=== PATIENT | male | born 1960 | race Caucasian/White ===

== ENCOUNTER 2018-02-01 05:49 | Inpatient (IN) ==
[2018-01-23 12:18] LABS: Basophils % 0.8 % (0.0-0.8); Eosinophils # 0.1 10*3/uL (0.0-0.87); Eosinophils % 2.1 % (0.00-10.9); Hematocrit 43.5 VOL% (42.0-52.0); Immature Granulocytes % 0.4 %; Immature Granulocytes Absolute 0.02 #; Lymphocytes # 0.8 10*3/uL (1.4-4.0); Lymphocytes % 15.8 % (21.2-54.2); Mean Corpuscular HGB Conc 34.5 GM/DL (32-36); Mean Corpuscular Hemoglobin 32 PG (27-34); Mean Platelet Volume 10.8 FL (9.6-12.0); Monocytes # 0.9 10*3/uL (0.11-0.8); Monocytes % 19.4 % (1.7-12.7); Neutrophils % 61.5 % (38.7-73.9); Platelet Count 113 T/CUMM (130-400); Red Blood Count 4.73 MC/CUMM (3.8-5.5); Red Cell Distribution Width 13.7 % (9.3-17.3); White Blood Count 4.8 T/CUMM (4-12)
[2018-01-23 12:44] LABS: Calcium 9.2 MG/DL (8.5-10.1)
[2018-01-23 12:45] LABS: Osmolality,Calculated 275.7 MOS/KG (273-304); Potassium 4.1 MMOL/L (3.5-5.1)
[~2018-02-01 05:49] MED LIST: cefOXitin 1,000 MG in SYRINGE 1 EACH IV ONE
[2018-02-01] MEDS ORDERED: ALVIMOPAN 12 MG CAPSULE ONE (05:54)
[2018-02-01] MEDS ORDERED: LACTATED RINGERS 1,000 ML IV SCH (06:00)
[2018-02-01] MEDS ORDERED: ALVIMOPAN 12 MG CAPSULE PO ONE (06:30)
[2018-02-01] MEDS ORDERED: FAMOTIDINE 20 MG TABLET ONE (06:40)
[2018-02-01] MEDS ORDERED: FAMOTIDINE 20 MG TABLET PO ONE (06:43)
[2018-02-01] MEDS ORDERED: FAMOTIDINE 20 MG/2 ML VIAL IV ONE (06:43)
[2018-02-01] MEDS ORDERED: PROPOFOL 200 MG/20 ML VIAL IV ONE (10:56)
[2018-02-01] MEDS ORDERED: DESFLURANE 1 UNIT/15 MINUTE INH ONE (10:57)
[2018-02-01] MEDS ORDERED: DEXAMETHASONE 10 MG/1 ML VIAL ONE (10:57)
[2018-02-01] MEDS ORDERED: MIDAZOLAM 2 MG/2 ML VIAL ONE (10:57)
[2018-02-01] MEDS ORDERED: SUFentanil 50 MCG/ML AMP ONE (10:57)
[2018-02-01] MEDS ORDERED: NEOSTIGMINE 10 MG/10 ML VIAL ONE (10:58)
[2018-02-01] MEDS ORDERED: GLYCOPYRROLATE 0.4 MG/2 ML VIAL ONE (10:58)
[2018-02-01] MEDS ORDERED: ACETAMINOPHEN 1,000 MG/100 ML VIAL IV ONE (10:58)
[2018-02-01] MEDS ORDERED: SODIUM CHLORIDE 0.9% 100 ML IV ONE (10:58)
[2018-02-01] MEDS ORDERED: ROCURONIUM 100 MG/10 ML VIAL IV ONE (10:58)
[2018-02-01] MEDS ORDERED: PHENYLEPHRINE 10 MG/1 ML VIAL IV ONE (10:58)
[2018-02-01] MEDS ORDERED: KETOROLAC 30 MG/1 ML VIAL ONE (10:58)
[2018-02-01] MEDS ORDERED: LACTATED RINGERS 1,000 ML IV ONE (10:58)
[2018-02-01] MEDS ORDERED: ONDANSETRON 4 MG/2 ML VIAL ONE ×2 (10:58→11:20)
[2018-02-01] MEDS ORDERED: ONDANSETRON 4 MG/2 ML VIAL IV PRN (11:04)
[2018-02-01] MEDS ORDERED: HYDROmorphone 2 MG/1 ML VIAL ONE (11:20)
[2018-02-01] MEDS: HYDROmorphone 2 MG/1 ML VIAL IV PRN ×7 (11:23→23:21)
[2018-02-01] MEDS ORDERED: FERROUS SULFATE 325 MG TABLET PO SCH (13:11)
[2018-02-01] MEDS: LACTATED RINGERS 1,000 ML IV SCH ×3 (13:40→22:06)
[2018-02-01 13:45] LABS: Basophils % 0.1 % (0.0-0.8); Eosinophils % 0.1 % (0.00-10.9); Hematocrit 41.8 VOL% (42.0-52.0); Hemoglobin 14.7 GM/DL (14.0-18.0); Immature Granulocytes % 0.4 %; Immature Granulocytes Absolute 0.04 #; Lymphocytes # 0.4 10*3/uL (1.4-4.0); Mean Corpuscular HGB Conc 35.2 GM/DL (32-36); Mean Corpuscular Hemoglobin 32 PG (27-34); Mean Corpuscular Volume 90.9 FL (87-102); Mean Platelet Volume 11.1 FL (9.6-12.0); Monocytes # 0.2 10*3/uL (0.11-0.8); Monocytes % 2.1 % (1.7-12.7); Neutrophils # 8.8 10*3/uL (1.4-7.4); Neutrophils % 93.3 % (38.7-73.9); Platelet Count 103 T/CUMM (130-400); Red Cell Distribution Width 13.8 % (9.3-17.3); White Blood Count 9.4 T/CUMM (4-12)
[2018-02-01 14:58] LABS: Lymphocytes 3 % (20-55); Segmented Neutrophils 96 % (50-85); Total Cells Counted 100
[2018-02-01 14:59] LABS: Platelet Estimate Decreased; Polychromasia Few
[2018-02-01] MEDS: ceFAZolin 2,000 MG in PREMIX 1 EACH IV SCH (18:46)
[2018-02-01] MEDS: ALVIMOPAN 12 MG CAPSULE PO SCH (21:14)
[2018-02-02] MEDS: HYDROmorphone 2 MG/1 ML VIAL IV PRN ×3 (03:15→20:59)
[2018-02-02] MEDS: ceFAZolin 2,000 MG in PREMIX 1 EACH IV SCH (04:05)
[2018-02-02] MEDS: LACTATED RINGERS 1,000 ML IV SCH ×2 (05:17→19:23)
[2018-02-02 05:24] LABS: Calcium 8.2 MG/DL (8.5-10.1); Osmolality,Calculated 275.1 MOS/KG (273-304); Potassium 4.6 MMOL/L (3.5-5.1)
[2018-02-02 08:22] LABS: Basophils % 0.1 % (0.0-0.8); Hematocrit 39.5 VOL% (42.0-52.0); Immature Granulocytes % 0.2 %; Immature Granulocytes Absolute 0.03 #; Lymphocytes # 0.9 10*3/uL (1.4-4.0); Lymphocytes % 7.4 % (21.2-54.2); Mean Corpuscular HGB Conc 35.4 GM/DL (32-36); Mean Corpuscular Hemoglobin 32 PG (27-34); Mean Corpuscular Volume 90.2 FL (87-102); Mean Platelet Volume 11.3 FL (9.6-12.0); Monocytes # 1.3 10*3/uL (0.11-0.8); Monocytes % 10.1 % (1.7-12.7); Neutrophils # 10.1 10*3/uL (1.4-7.4); Neutrophils % 82.2 % (38.7-73.9); Platelet Count 113 T/CUMM (130-400); Red Blood Count 4.38 MC/CUMM (3.8-5.5); Red Cell Distribution Width 13.6 % (9.3-17.3); White Blood Count 12.3 T/CUMM (4-12)
[2018-02-02] MEDS: ALVIMOPAN 12 MG CAPSULE PO SCH ×2 (10:09→20:59)
[2018-02-02] MEDS: PANTOPRAZOLE 40 MG VIAL IV SCH (10:10)
[2018-02-02] MEDS: ESCITALOPRAM 10 MG TABLET PO SCH (10:10)
[2018-02-02] MEDS: cefOXitin 2,000 MG in SYRINGE 1 EACH IV SCH ×2 (11:21→19:21)
[2018-02-03] MEDS: cefOXitin 2,000 MG in SYRINGE 1 EACH IV SCH ×3 (01:30→18:15)
[2018-02-03] MEDS: LACTATED RINGERS 1,000 ML IV SCH ×3 (02:55→20:23)
[2018-02-03 05:31] LABS: Basophils % 0.1 % (0.0-0.8); Eosinophils # 0.1 10*3/uL (0.0-0.87); Eosinophils % 1.1 % (0.00-10.9); Hematocrit 38.1 VOL% (42.0-52.0); Hemoglobin 13.4 GM/DL (14.0-18.0); Immature Granulocytes % 0.3 %; Immature Granulocytes Absolute 0.03 #; Lymphocytes # 1.4 10*3/uL (1.4-4.0); Lymphocytes % 15.2 % (21.2-54.2); Mean Corpuscular HGB Conc 35.2 GM/DL (32-36); Mean Corpuscular Hemoglobin 32 PG (27-34); Mean Corpuscular Volume 90.5 FL (87-102); Mean Platelet Volume 11.7 FL (9.6-12.0); Monocytes # 1.2 10*3/uL (0.11-0.8); Monocytes % 12.8 % (1.7-12.7); Neutrophils # 6.5 10*3/uL (1.4-7.4); Neutrophils % 70.5 % (38.7-73.9); Red Blood Count 4.21 MC/CUMM (3.8-5.5); Red Cell Distribution Width 13.4 % (9.3-17.3); White Blood Count 9.3 T/CUMM (4-12)
[2018-02-03 05:39] LABS: Platelet Count 90 T/CUMM (130-400)
[2018-02-03 06:00] LABS: Calcium 8.6 MG/DL (8.5-10.1); Osmolality,Calculated 278.5 MOS/KG (273-304); Potassium 4.1 MMOL/L (3.5-5.1)
[2018-02-03 07:20] LABS: Hypochromasia Slight; Macrocytosis Slight
[2018-02-03] MEDS: ESCITALOPRAM 10 MG TABLET PO SCH (08:38)
[2018-02-03] MEDS: ALVIMOPAN 12 MG CAPSULE PO SCH ×2 (08:38→21:18)
[2018-02-03] MEDS: PANTOPRAZOLE 40 MG VIAL IV SCH (08:42)
[2018-02-03] MEDS: ENOXAPARIN 40 MG/0.4 ML SYRINGE SUBCUT SCH (11:51)
[2018-02-03] MEDS: HYDROmorphone 2 MG/1 ML VIAL IV PRN ×2 (13:07→19:22)
[2018-02-04] MEDS ORDERED: ONDANSETRON 4 MG/2 ML VIAL IV PRN (04:14)
[2018-02-04] MEDS: HYDROmorphone 2 MG/1 ML VIAL IV PRN (04:36)
[2018-02-04] MEDS: ESCITALOPRAM 10 MG TABLET PO SCH (08:20)
[2018-02-04] MEDS: PANTOPRAZOLE 40 MG VIAL IV SCH (08:20)
[2018-02-04] MEDS: ALVIMOPAN 12 MG CAPSULE PO SCH (08:20)
[2018-02-04] MEDS: ENOXAPARIN 40 MG/0.4 ML SYRINGE SUBCUT SCH (09:20)
[2018-02-04] MEDS: LACTATED RINGERS 1,000 ML IV SCH (15:15)
[2018-02-05 06:06] LABS: Basophils % 0.2 % (0.0-0.8); Eosinophils # 0.3 10*3/uL (0.0-0.87); Eosinophils % 5.1 % (0.00-10.9); Hematocrit 40.5 VOL% (42.0-52.0); Hemoglobin 14.3 GM/DL (14.0-18.0); Immature Granulocytes % 0.3 %; Immature Granulocytes Absolute 0.02 #; Lymphocytes # 1.1 10*3/uL (1.4-4.0); Lymphocytes % 18.9 % (21.2-54.2); Mean Corpuscular HGB Conc 35.3 GM/DL (32-36); Mean Corpuscular Hemoglobin 31 PG (27-34); Mean Platelet Volume 11.1 FL (9.6-12.0); Monocytes # 0.8 10*3/uL (0.11-0.8); Monocytes % 13.6 % (1.7-12.7); Neutrophils # 3.7 10*3/uL (1.4-7.4); Neutrophils % 61.9 % (38.7-73.9); Platelet Count 125 T/CUMM (130-400); Red Blood Count 4.55 MC/CUMM (3.8-5.5); Red Cell Distribution Width 13.2 % (9.3-17.3)
[2018-02-05 06:37] LABS: Calcium 8.2 MG/DL (8.5-10.1); Osmolality,Calculated 276.7 MOS/KG (273-304); Potassium 4.1 MMOL/L (3.5-5.1)
[2018-02-05] MEDS ORDERED: PANTOPRAZOLE 40 MG TABLET PO SCH (09:00)
[2018-02-05] MEDS: ESCITALOPRAM 10 MG TABLET PO SCH (09:33)
[2018-02-05 10:58] VITALS: BP 135/87
[2018-02-05] MEDS: ENOXAPARIN 40 MG/0.4 ML SYRINGE SUBCUT SCH (11:33)
== END 2018-02-05 16:20 | disposition home or self-care (01) | DRG 330 ==
LOC: N.OR 05:49 → N.SDSINP 05:50 → N.3E 09:40
PROVIDERS: ADMIT Surgery; ATTEND Surgery

== ENCOUNTER 2018-02-14 16:58 | Inpatient (IN) ==
[2018-02-14 17:42] LABS: Basophils # 0.1 10*3/uL (0.0-0.2); Basophils % 0.3 % (0.0-0.8); Eosinophils # 0.1 10*3/uL (0.0-0.87); Eosinophils % 0.9 % (0.00-10.9); Hematocrit 39.7 VOL% (42.0-52.0); Hemoglobin 13.8 GM/DL (14.0-18.0); Immature Granulocytes % 0.5 %; Immature Granulocytes Absolute 0.07 #; Lymphocytes # 1.4 10*3/uL (1.4-4.0); Lymphocytes % 8.8 % (21.2-54.2); Mean Corpuscular HGB Conc 34.8 GM/DL (32-36); Mean Corpuscular Hemoglobin 31 PG (27-34); Mean Corpuscular Volume 90.2 FL (87-102); Mean Platelet Volume 10.9 FL (9.6-12.0); Monocytes # 1.4 10*3/uL (0.11-0.8); Monocytes % 9.2 % (1.7-12.7); Neutrophils # 12.4 10*3/uL (1.4-7.4); Neutrophils % 80.3 % (38.7-73.9); Platelet Count 194 T/CUMM (130-400); Red Cell Distribution Width 13.3 % (9.3-17.3); White Blood Count 15.5 T/CUMM (4-12)
[2018-02-14] MEDS ORDERED: SODIUM CHLORIDE 0.9% 1,000 ML IV STA (17:42)
[2018-02-14 18:11] LABS: Albumin 3.2 G/DL (3.4-5.0); Bilirubin,Total 0.6 MG/DL (0.2-1.0); Osmolality,Calculated 278.7 MOS/KG (273-304); Potassium 4.1 MMOL/L (3.5-5.1); Total Protein 7.8 G/DL (6.4-8.3)
[2018-02-14] MEDS ORDERED: PIPERACILLIN/TAZOBACTAM 3,375 MG in SODIUM CHLORIDE 0.9% 100 ML IV STA (18:59)
[2018-02-14] MEDS ORDERED: metroNIDAZOLE INJ 500 MG in PREMIX 1 EACH IV STA (18:59)
[2018-02-14] MEDS ORDERED: ONDANSETRON 4 MG/2 ML VIAL IV PRN (19:09)
[2018-02-14 19:16] LABS: Apearance,Urine CLEAR (Clear); Bilirubin,Urine Negative (Negative); Blood, Urine Negative (Negative); Glucose,Urine (UA) Negative (Negative); Ketones,Urine Negative (Negative); Mucus,Urine Occasional /LPF (Occasional); Nitrite,Urine Negative (Negative); Protein,Urine Negative; RBC,Urine 1 /HPF (0-4); Urine Color Yellow (Yellow); Urine Specific Gravity > 1.060 (1.001-1.035); Urine Urobilinogen < 2.0 EU/DL (0.2-1.0); WBC,Urine <1 /HPF (0-6)
[2018-02-14] MEDS ORDERED: PIPERACILLIN/TAZOBACTAM 3,375 MG VIAL IV ONE (19:37)
[2018-02-14] MEDS: DEXTROSE 5% NACL 0.45% 1,000 ML IV SCH (22:06)
[2018-02-15] MEDS: DEXTROSE 5% NACL 0.45% 1,000 ML IV SCH ×2 (03:36→14:09)
[2018-02-15] MEDS ORDERED: metroNIDAZOLE INJ 500 MG in PREMIX 1 EACH IV SCH (04:00)
[2018-02-15] MEDS: PIPERACILLIN/TAZOBACTAM 3,375 MG in SODIUM CHLORIDE 0.9% 100 ML IV SCH ×3 (06:10→20:24)
[2018-02-15] MEDS: ACETAMINOPHEN 325 MG TABLET PO PRN ×3 (08:40→21:33)
[2018-02-15] MEDS: PANTOPRAZOLE 40 MG TABLET PO SCH (08:40)
[2018-02-16 04:40] LABS: Basophils # 0.1 10*3/uL (0.0-0.2); Basophils % 0.5 % (0.0-0.8); Eosinophils # 0.2 10*3/uL (0.0-0.87); Eosinophils % 2.5 % (0.00-10.9); Hematocrit 35.3 VOL% (42.0-52.0); Hemoglobin 12.3 GM/DL (14.0-18.0); Immature Granulocytes % 0.4 %; Immature Granulocytes Absolute 0.04 #; Lymphocytes # 1.2 10*3/uL (1.4-4.0); Lymphocytes % 13.6 % (21.2-54.2); Mean Corpuscular HGB Conc 34.8 GM/DL (32-36); Mean Corpuscular Hemoglobin 31 PG (27-34); Mean Corpuscular Volume 89.8 FL (87-102); Mean Platelet Volume 10.9 FL (9.6-12.0); Monocytes # 0.9 10*3/uL (0.11-0.8); Monocytes % 10.3 % (1.7-12.7); Neutrophils # 6.6 10*3/uL (1.4-7.4); Neutrophils % 72.7 % (38.7-73.9); Platelet Count 138 T/CUMM (130-400); Red Blood Count 3.93 MC/CUMM (3.8-5.5); Red Cell Distribution Width 13.3 % (9.3-17.3); White Blood Count 9.1 T/CUMM (4-12)
[2018-02-16] MEDS: PIPERACILLIN/TAZOBACTAM 3,375 MG in SODIUM CHLORIDE 0.9% 100 ML IV SCH (05:30)
[2018-02-16] MEDS: ACETAMINOPHEN 325 MG TABLET PO PRN (05:32)
[2018-02-16] MEDS: DEXTROSE 5% NACL 0.45% 1,000 ML IV SCH (05:34)
[2018-02-16] MEDS: PANTOPRAZOLE 40 MG TABLET PO SCH (10:14)
[2018-02-16 12:17] VITALS: BP 144/82
[2018-02-20 22:01] LABS: Q Fever IgM Phase I Screen NEGATIVE (NEGATIVE); Q Fever IgM Phase II Screen NEGATIVE (NEGATIVE)
== END 2018-02-16 12:15 | disposition home or self-care (01) | DRG 864 ==
LOC: N.ED 16:58 → N.EDINP 19:09 → N.3E 20:04
PROVIDERS: ADMIT Surgery; ATTEND Surgery

== ENCOUNTER 2019-03-21 12:37 | Observation (INO) ==
[2019-03-21 15:03] LABS: Basophils % 0.4 % (0.0-0.8); Eosinophils % 0.3 % (0.00-10.9); Hematocrit 38.5 VOL% (42.0-52.0); Hemoglobin 12.8 GM/DL (14.0-18.0); Immature Granulocytes % 0.4 %; Immature Granulocytes Absolute 0.03 #; Lymphocytes # 0.5 10*3/uL (1.4-4.0); Lymphocytes % 7.3 % (21.2-54.2); Mean Corpuscular HGB Conc 33.2 GM/DL (32-36); Mean Corpuscular Volume 94.1 FL (87-102); Mean Platelet Volume 10.9 FL (9.6-12.0); Monocytes % 13.5 % (1.7-12.7); Neutrophils % 78.1 % (38.7-73.9); Platelet Count 46 T/CUMM (130-400); Red Blood Count 4.09 MC/CUMM (3.8-5.5); Red Cell Distribution Width 14.7 % (9.3-17.3); White Blood Count 7.3 T/CUMM (4-12)
[2019-03-21 15:42] LABS: Albumin 2.1 G/DL (3.4-5.0); Bilirubin,Total 3.7 MG/DL (0.2-1.0); Calcium 6.9 MG/DL (8.5-10.1); Osmolality,Calculated 266.7 MOS/KG (273-304); Total Protein 6.2 G/DL (6.4-8.3)
[2019-03-21 16:08] LABS: Apearance,Urine CLEAR (Clear); Bilirubin,Urine Small mg/dL (Negative); Blood, Urine Negative (Negative); Glucose,Urine (UA) Negative (Negative); Ketones,Urine Negative (Negative); Mucus,Urine Many /LPF (Occasional); Nitrite,Urine Negative (Negative); Protein,Urine Negative; RBC,Urine 6 /HPF (0-4); Urine Color Yellow (Yellow); Urine Specific Gravity > 1.060 (1.001-1.035); WBC,Urine 1 /HPF (0-6)
[2019-03-21 16:21] LABS: Poikilocytosis Slight; Polychromasia Few
[2019-03-21 16:22] LABS: Hypochromasia Slight; Platelet Estimate Decreased
[2019-03-21 16:23] LABS: Anisocytosis 1+
[2019-03-21] MEDS ORDERED: ONDANSETRON 4 MG/2 ML VIAL IV PRN (16:36)
[2019-03-21] MEDS ORDERED: ACETAMINOPHEN 325 MG TABLET PO PRN (16:36)
[2019-03-21] MEDS: LACTULOSE 20 GM/30 ML UDCUP PO SCH ×2 (19:32→23:41)
[2019-03-21] MEDS ORDERED: ESCITALOPRAM 10 MG TABLET PO SCH (21:00)
[2019-03-22 05:14] LABS: Basophils % 0.5 % (0.0-0.8); Hematocrit 35.6 VOL% (42.0-52.0); Immature Granulocytes % 0.5 %; Immature Granulocytes Absolute 0.03 #; Lymphocytes # 0.4 10*3/uL (1.4-4.0); Lymphocytes % 7.1 % (21.2-54.2); Mean Corpuscular HGB Conc 33.7 GM/DL (32-36); Mean Corpuscular Volume 93.4 FL (87-102); Mean Platelet Volume 11.3 FL (9.6-12.0); Monocytes % 18.6 % (1.7-12.7); Neutrophils % 73.3 % (38.7-73.9); Platelet Count 50 T/CUMM (130-400); Red Blood Count 3.81 MC/CUMM (3.8-5.5); Red Cell Distribution Width 14.8 % (9.3-17.3); White Blood Count 5.6 T/CUMM (4-12)
[2019-03-22] MEDS: oxyCODONE IR 5 MG TABLET PO PRN ×2 (05:32→10:27)
[2019-03-22] MEDS: LACTULOSE 20 GM/30 ML UDCUP PO SCH (05:32)
[2019-03-22 05:49] LABS: Anisocytosis 1+; Band Neutrophils 4 % (0-10); Lymphocytes 8 % (20-55); Platelet Estimate Decreased; Segmented Neutrophils 78 % (50-85); Total Cells Counted 100
[2019-03-22 05:54] LABS: Calcium 8.3 MG/DL (8.5-10.1); Osmolality,Calculated 268.4 MOS/KG (273-304); Thyroid Stimulating Hormone 2.55 uIU/ml (0.358-3.74)
[2019-03-22] MEDS ORDERED: FUROSEMIDE 20 MG TABLET PO SCH (09:00)
[2019-03-22] MEDS ORDERED: PANTOPRAZOLE 40 MG TABLET PO SCH (09:00)
[2019-03-22 12:04] VITALS: BP 103/63
[2019-03-22] MEDS ORDERED: LACTULOSE 20 GM/30 ML UDCUP PO SCH (21:00)
== END 2019-03-22 16:00 | disposition home or self-care (01) ==
LOC: N.ED 12:37 → N.EDINP 12:37 → N.4E 17:44
PROVIDERS: ADMIT Internal Medicine; ATTEND Internal Medicine